=== PATIENT | female | born 1950 | race Two or more races ===

== ENCOUNTER 2024-08-11 17:04 | Emergency (ER) | payer OTHER ==
[~2024-08-11] VITALS: Ht 165.1 cm; Wt 66.0 kg
[2024-08-11 18:25] VITALS: BP 143/83; PULSE 82; RESP 20; TEMP 98.2; O2SAT 98
[2024-08-11] MEDS: HYDROcodone-ACET 5/325MG TAB PO ONE (18:38)
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
[2024-08-11] MEDS ORDERED: METH-1181 PO (20:11)
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
[2024-08-11] MEDS ORDERED: METH4PAK PO (20:18)
== END 2024-08-11 20:36 | disposition home or self-care (01) ==
LOC: ER 17:04
DX: S13.4XXA Sprain of ligaments of cervical spine, initial encounter (principal); S23.3XXA Sprain of ligaments of thoracic spine, initial encounter; S33.5XXA Sprain of ligaments of lumbar spine, initial encounter; Z79.899 Other long term (current) drug therapy; V89.2XXA Person injured in unspecified motor-vehicle accident, traffic, initial encounter; Y93.I9 Activity, other involving external motion; Y92.488 Other paved roadways as the place of occurrence of the external cause; Y99.8 Other external cause status
CPT/HCPCS: 72125; 72128; 72131